=== PATIENT | female | born 2000 | race Caucasian/White ===

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

== ENCOUNTER → 2021-10-22 | Outpatient (CLI) | payer BC ==
--- NOTE | 2021-10-22 15:58 | RAD ---
AP and Lateral Views of the Chest 10/22/2021 3:45 PM Indication: Reason: SHORTNESS OF BREATH / Comparison: Chest radiograph March 19, 2017 Findings: There is no focal consolidation or infiltrate identified. The cardiomediastinal silhouette is within normal limits. There is no evidence of pneumothorax or pleural effusion. No acute osseous a bnormalities are identified. Impression: No evidence of acute cardiopulmonary process. Electronically signed by: Tanner Conn MD (10/22/2021 3:56 PM) [id number]
== END ==
LOC: PMG 15:39
PROVIDERS: ATTEND Nurse Practitioner Family
DX: R06.02 Shortness of breath (principal)
CPT/HCPCS: 71046